=== PATIENT | female | born 1995 | race African-American/Black ===

== ENCOUNTER 2022-08-13 18:31 | Emergency (ER) | payer OTHER, SELFPAY ==
[2022-08-13] MEDS ORDERED: Cyclobenzaprine 10 MG TAB ONE (21:06)
== END 2022-08-13 22:16 | disposition home or self-care (01) ==
LOC: ERS 18:31
DX: S10.93XA Contusion of unspecified part of neck, initial encounter (principal); R51.9 Headache, unspecified; V89.2XXA Person injured in unspecified motor-vehicle accident, traffic, initial encounter
CPT/HCPCS: 70486; 72125

== ENCOUNTER 2023-07-04 10:23 | Emergency (ER) | payer SELFPAY | END 2023-07-04 13:11 | disposition home or self-care (01) | LOC: ERS 10:23 | DX: S46.911A Strain of unspecified muscle, fascia and tendon at shoulder and upper arm level, right arm, initial encounter (principal); X50.1XXA Overexertion from prolonged static or awkward postures, initial encounter ==

== ENCOUNTER 2024-06-12 21:59 | Emergency (ER) | payer OTHER, SELFPAY | END 2024-06-12 22:57 | disposition home or self-care (01) | LOC: ERS 21:59 | DX: S63.695A Other sprain of left ring finger, initial encounter (principal); W23.0XXA Caught, crushed, jammed, or pinched between moving objects, initial encounter | CPT/HCPCS: 99283 ==